=== PATIENT | male | born 1935 | race Caucasian/White ===

== ENCOUNTER 2017-12-20 19:40 | Inpatient (IN) | payer OTHER, MEDICAID ==
[~2017-12-20] VITALS: Ht 165.1 cm; Wt 63.2 kg
[2017-12-20 19:49] VITALS: Ht 165.1 cm; Wt 63.2 kg
[2017-12-20 20:46] LABS: PLATELET COUNT 183 x10^3mcL (130-400)
[2017-12-20 20:49] LABS: RED CELL DISTRIBUTION WIDTH 15.2 % (11.5-14.5)
[2017-12-20 20:50] LABS: CALCIUM 8.3 mg/dL (8.5-10.1); CARBON DIOXIDE 26.4 mmol/L (21-32); CHLORIDE SERUM 103 mmol/L (98-107); CREATININE SERUM 1.3 mg/dL (0.7-1.3); GLUCOSE SERUM 69 mg/dL (74-106); POTASSIUM SERUM 3.2 mmol/L (3.5-5.1); SODIUM SERUM 139 mmol/L (136-145)
[2017-12-20] MEDS ORDERED: CIPRO500 MG PO (20:51)
[2017-12-20] MEDS ORDERED: LASIX20 MG PO (20:52)
[2017-12-20] MEDS ORDERED: ALDACTONE50 MG PO (20:52)
[2017-12-20 21:03] LABS: ALKALINE PHOSPHATASE 117 U/L (46-116); ALT/SGPT 12 U/L (16-63); AST/SGOT 28 U/L (15-37); BILIRUBIN TOTAL 2.52 mg/dL (0.20-1.00); FREE T4 1.49 ng/dL (0.76-1.46); LIPASE 139 IU/L (73-393); TOTAL PROTEIN, SERUM 7.8 g/dL (6.4-8.2)
[2017-12-20 21:10] LABS: ALBUMIN 2.4 g/dL (3.4-5.0)
[2017-12-20 21:22] LABS: BAND NEUTROPHIL 3 % (0-10); MONOCYTE 21 % (0-7); SEGMENTED NEUTROPHILS 57 % (37-75)
[2017-12-20 21:23] LABS: PLATELET MORPHOLOGY FEW LARGE PLATELETS; rbc morphology (normal/abnorm) ABNORMAL (NORMAL)
[2017-12-20 22:39] LABS: MAGNESIUM 1.6 mg/dL (1.8-2.4); PHOSPHOROUS 3.1 mg/dL (2.5-4.9)
[2017-12-20 22:40] LABS: CHOLESTEROL/HDL RATIO 4.7
[2017-12-20 22:47] LABS: T3 TOTAL 0.68 ng/mL
[2017-12-20 22:48] LABS: FREE T4 1.37 ng/dL (0.76-1.46); FREE THYROXINE INDEX 2.2 ug/dL (1.4-4.5); T4(THYROXINE) 6.2 ug/dL (4.7-13.3)
[2017-12-20 23:34] VITALS: BP 111/61
[2017-12-21 05:13] VITALS: BP 105/80
[2017-12-21 09:13] VITALS: BP 108/63
[2017-12-21 10:00] LABS: PLATELET COUNT 190 x10^3mcL (130-400)
[2017-12-21 10:03] LABS: RED CELL DISTRIBUTION WIDTH 15.5 % (11.5-14.5)
[2017-12-21 10:23] LABS: CARBON DIOXIDE 27.8 mmol/L (21-32); CHLORIDE SERUM 102 mmol/L (98-107); CREATININE SERUM 1.1 mg/dL (0.7-1.3); GLUCOSE SERUM 105 mg/dL (74-106); MAGNESIUM 2.3 mg/dL (1.8-2.4); PHOSPHOROUS 3.3 mg/dL (2.5-4.9); POTASSIUM SERUM 3.6 mmol/L (3.5-5.1); SODIUM SERUM 137 mmol/L (136-145)
[2017-12-21 11:11] LABS: BAND NEUTROPHIL 0 % (0-10); BASOPHIL 0 % (0-2); MONOCYTE 19 % (0-7); SEGMENTED NEUTROPHILS 69 % (37-75)
[2017-12-21 11:52] LABS: microscopic required? NO
[2017-12-21 12:19] LABS: urine erythrocyte NEGATIVE (NEGATIVE)
[2017-12-21 12:29] LABS: AMPHETAMINE QUAL UR NONE DETECTED (See below)
[2017-12-21 13:28] VITALS: BP 106/68
[2017-12-21 17:49] VITALS: BP 127/77
[2017-12-21 20:36] VITALS: BP 120/74
[2017-12-22 05:53] VITALS: BP 114/66
[2017-12-22 06:44] LABS: PLATELET COUNT 172 x10^3mcL (130-400)
[2017-12-22 06:52] LABS: CALCIUM 7.7 mg/dL (8.5-10.1); CARBON DIOXIDE 27.9 mmol/L (21-32); CHLORIDE SERUM 103 mmol/L (98-107); CREATININE SERUM 1.1 mg/dL (0.7-1.3); GLUCOSE SERUM 80 mg/dL (74-106); MAGNESIUM 1.9 mg/dL (1.8-2.4); PHOSPHOROUS 3.2 mg/dL (2.5-4.9); POTASSIUM SERUM 3.6 mmol/L (3.5-5.1); SODIUM SERUM 139 mmol/L (136-145)
[2017-12-22 07:30] LABS: RED CELL DISTRIBUTION WIDTH 15.2 % (11.5-14.5)
[2017-12-22 09:33] VITALS: BP 97/62
[2017-12-22 12:02] LABS: BAND NEUTROPHIL 3 % (0-10); MONOCYTE 20 % (0-7); SEGMENTED NEUTROPHILS 58 % (37-75)
[2017-12-22 12:03] LABS: PLATELET MORPHOLOGY PLATELETS NORMAL; rbc morphology (normal/abnorm) NORMAL (NORMAL)
[2017-12-22 13:15] VITALS: BP 110/73
[2017-12-22 16:40] VITALS: BP 97/62
[2017-12-22 17:22] LABS: APPEARANCE FLUID CLEAR; COLOR FLUID YELLOW; RBC FLUID 32 /cumm; SOURCE FLUID ASCITES; WBC FLUID 62 /cumm
[2017-12-22 17:23] LABS: LYMPHOCYTE FLUID 50 %; MONOCYTE FLUID 10 %
[2017-12-22 20:49] VITALS: BP 101/59
[2017-12-22 21:28] VITALS: BP 101/59
[2017-12-23 05:00] VITALS: BP 96/57
[2017-12-23 06:23] LABS: PLATELET COUNT 158 x10^3mcL (130-400)
[2017-12-23 07:19] LABS: CALCIUM 7.9 mg/dL (8.5-10.1); CARBON DIOXIDE 29.8 mmol/L (21-32); CHLORIDE SERUM 102 mmol/L (98-107); CREATININE SERUM 1.1 mg/dL (0.7-1.3); GLUCOSE SERUM 80 mg/dL (74-106); MAGNESIUM 1.7 mg/dL (1.8-2.4); PHOSPHOROUS 3.4 mg/dL (2.5-4.9); POTASSIUM SERUM 4.1 mmol/L (3.5-5.1); SODIUM SERUM 138 mmol/L (136-145)
[2017-12-23 07:43] LABS: RED CELL DISTRIBUTION WIDTH 15.6 % (11.5-14.5)
[2017-12-23 08:28] VITALS: BP 111/59
[2017-12-23 11:22] LABS: BAND NEUTROPHIL 0 % (0-10); BASOPHIL 0 % (0-2); MONOCYTE 20 % (0-7); SEGMENTED NEUTROPHILS 58 % (37-75)
[2017-12-23 11:23] LABS: PLATELET MORPHOLOGY PLATELETS DECREASED; rbc morphology (normal/abnorm) ABNORMAL (NORMAL)
[2017-12-23 12:35] VITALS: BP 101/51
[2017-12-23 18:12] VITALS: BP 103/52
[2017-12-23 20:30] VITALS: BP 91/53
[2017-12-24 06:00] VITALS: BP 93/52
[2017-12-24 06:39] LABS: CALCIUM 7.9 mg/dL (8.5-10.1); CHLORIDE SERUM 102 mmol/L (98-107); CREATININE SERUM 1.3 mg/dL (0.7-1.3); GLUCOSE SERUM 98 mg/dL (74-106); MAGNESIUM 1.7 mg/dL (1.8-2.4); PHOSPHOROUS 3.5 mg/dL (2.5-4.9); PLATELET COUNT 154 x10^3mcL (130-400); POTASSIUM SERUM 3.6 mmol/L (3.5-5.1); SODIUM SERUM 140 mmol/L (136-145)
[2017-12-24 06:49] LABS: RED CELL DISTRIBUTION WIDTH 15.3 % (11.5-14.5)
[2017-12-24 08:51] VITALS: BP 81/44
[2017-12-24 09:54] LABS: BAND NEUTROPHIL 0 % (0-10); BASOPHIL 0 % (0-2); MONOCYTE 21 % (0-7); SEGMENTED NEUTROPHILS 56 % (37-75)
[2017-12-24 09:55] LABS: PLATELET MORPHOLOGY PLATELETS NORMAL; rbc morphology (normal/abnorm) NORMAL (NORMAL)
[2017-12-24 10:50] VITALS: BP 96/60
[2017-12-24 13:11] VITALS: BP 96/60
[2017-12-24] MEDS ORDERED: ZOSYN1 PD1 IV (13:35)
[2017-12-24] MEDS ORDERED: OSCD PO (13:36)
[2017-12-24] MEDS ORDERED: MAG PO (13:36)
[2017-12-24] MEDS ORDERED: COL100 PO (13:39)
[2017-12-24 13:55] VITALS: BP 96/55
[2017-12-24 17:41] VITALS: BP 94/44
== END 2017-12-24 19:05 | disposition short-term general hospital (02) | DRG 432 ==
LOC: ED 19:40 → DU 21:53
PROVIDERS: Emergency Medicine; Family Medicine
PROC: 0W9G3ZZ Drainage of Peritoneal Cavity, Percutaneous Approach (ICD-10-PCS; principal; 2017-12-22)
DX: K70.40 Alcoholic hepatic failure without coma (principal); N17.0 Acute kidney failure with tubular necrosis; E43 Unspecified severe protein-calorie malnutrition; J69.0 Pneumonitis due to inhalation of food and vomit; J90 Pleural effusion, not elsewhere classified; J98.11 Atelectasis; N45.4 Abscess of epididymis or testis; R64 Cachexia; K70.31 Alcoholic cirrhosis of liver with ascites; R06.03 Acute respiratory distress; I48.91 Unspecified atrial fibrillation; I87.2 Venous insufficiency (chronic) (peripheral); E87.6 Hypokalemia; E83.42 Hypomagnesemia; E03.9 Hypothyroidism, unspecified; D53.9 Nutritional anemia, unspecified; Z68.30 Body mass index [BMI] 30.0-30.9, adult
CPT/HCPCS: 49083; 82962; 83880; 84439; 97110-GP; 97530-GP; B4164; C1729; G0480; J0696; J1940; J2001; J2543; J3475; J3490; J7040; J7620; Q0092